=== PATIENT | male | born 1945 | race Caucasian/White ===

== ENCOUNTER → 2018-02-04 | Outpatient (CLI) | payer BC ==
[~2018-02-04] MED LIST: ACYC-57 PO; ASPI-621 PO; ATOR40TA78 PO; CEFD300C37 PO; CIPR500T87 PO; CLOP75TA PO; FURO-93 PO; LISI2.5T PO; METO25TA35 PO; METO25TA35 PO/NG; OXYC5TAB3 PO; POTA20TA14 PO; REGADENOSON 0.4 MG/5 ML SYRINGE ONE; TAMS0.4C2 PO
== END | disposition home or self-care (01) ==
LOC: CFH 07:09
PROVIDERS: ATTEND Physician Assistant
DX: I25.10 Atherosclerotic heart disease of native coronary artery without angina pectoris (principal); Z85.79 Personal history of other malignant neoplasms of lymphoid, hematopoietic and related tissues
CPT/HCPCS: 78452; 93017; A9502; J2785